=== PATIENT | male | born 1950 | race Caucasian/White ===

== ENCOUNTER 2021-03-05 10:15 | Emergency (ER) | payer MEDICARE ==
[~2021-03-05] VITALS: Ht 170.2 cm; Wt 54.4 kg
[2021-03-05 12:53] VITALS: BP 106/62
== END 2021-03-05 12:55 ==
LOC: ER 10:54
DX: S62.101A Fracture of unspecified carpal bone, right wrist, initial encounter for closed fracture (principal); M25.551 Pain in right hip; W19.XXXA Unspecified fall, initial encounter; Y92.128 Other place in nursing home as the place of occurrence of the external cause; G30.9 Alzheimer's disease, unspecified; F02.80 Dementia in other diseases classified elsewhere, unspecified severity, without behavioral disturbance, psychotic disturbance, mood disturbance, and anxiety
CPT/HCPCS: 70450; 72170; 99283

== ENCOUNTER 2021-03-22 08:42 | Emergency (ER) | payer MEDICARE ==
[~2021-03-22] VITALS: Ht 170.2 cm; Wt 54.4 kg
== END 2021-03-22 09:00 | disposition home or self-care (01) ==
LOC: ER 08:50
DX: Z47.89 Encounter for other orthopedic aftercare (principal); S52.501D Unspecified fracture of the lower end of right radius, subsequent encounter for closed fracture with routine healing; I10 Essential (primary) hypertension; J44.9 Chronic obstructive pulmonary disease, unspecified; E03.9 Hypothyroidism, unspecified; G40.909 Epilepsy, unspecified, not intractable, without status epilepticus; F41.9 Anxiety disorder, unspecified
CPT/HCPCS: 99283